=== PATIENT | male | born 1985 | race Caucasian/White ===

== ENCOUNTER 2022-04-03 00:09 | Emergency (ER) | payer OTHER ==
[~2022-04-03] VITALS: Ht 182.9 cm; Wt 113.6 kg
[2022-04-03 00:16] VITALS: BP 143/91
--- NOTE | 2022-04-03 00:30 | NUR ---
wound cleaned with 150ml nacl
== END 2022-04-03 02:24 | disposition home or self-care (01) ==
LOC: ER 00:10
DX: S01.21XA Laceration without foreign body of nose, initial encounter (principal); F12.90 Cannabis use, unspecified, uncomplicated; Z72.89 Other problems related to lifestyle; V87.7XXA Person injured in collision between other specified motor vehicles (traffic), initial encounter; Y93.89 Activity, other specified; Y92.89 Other specified places as the place of occurrence of the external cause; Y99.8 Other external cause status
CPT/HCPCS: 12002; 12013; 99282; A6449